=== PATIENT | male | born 1990 | race Hispanic/Latino ===

== ENCOUNTER 2021-06-21 14:44 | Emergency (ER) | payer SELFPAY ==
[~2021-06-21] VITALS: Ht 172.7 cm; Wt 77.1 kg
[2021-06-21] MEDS ORDERED: KETOROLAC 60 MG VIAL (30MG/ML) ONE (16:39)
[2021-06-21] MEDS ORDERED: ORPHENADRINE CITRATE 30 MG/ML ML ONE (16:39)
[2021-06-21] MEDS ORDERED: ORPHENADRINE CITRATE 30 MG/ML ML IM ONE (17:00)
[2021-06-21] MEDS ORDERED: KETOROLAC 60 MG VIAL (30MG/ML) IM ONE (17:00)
[2021-06-21] MEDS ORDERED: CYCL-309 PO (17:35)
[2021-06-21] MEDS ORDERED: NAPR-1180 PO (17:35)
[2021-06-21 17:56] VITALS: BP 117/84
== END 2021-06-21 17:57 | disposition home or self-care (01) ==
LOC: EDH 14:44
DX: S39.012A Strain of muscle, fascia and tendon of lower back, initial encounter (principal); R21 Rash and other nonspecific skin eruption; Z79.1 Long term (current) use of non-steroidal anti-inflammatories (NSAID); X58.XXXA Exposure to other specified factors, initial encounter; Y93.89 Activity, other specified; Y92.89 Other specified places as the place of occurrence of the external cause; Y99.8 Other external cause status
CPT/HCPCS: 96372 ×2; 99284; J1885; J2360